=== PATIENT | female | born 1985 | race Caucasian/White ===

== ENCOUNTER 2021-08-31 05:50 | Inpatient (IN) | payer BC ==
[2021-08-31] MEDS ORDERED: ELECTROLYTE-148 SOLN 1,000 ML IV ONE (06:35)
[2021-08-31 06:46] VITALS: BMI 33.6
[2021-08-31 07:33] LABS: BASO % 0.2 % (0-2.0); EOS % 0.9 % (0-4.5); HEMATOCRIT 39.8 % (32.4-45.2); HEMOGLOBIN 13.3 GM/dL (10.7-15.3); LYMPH % 30.4 % (8-40); MCH 31.8 pg (25.7-33.7); MCHC 33.4 g/dl (32.0-36.0); MEAN PLT VOLUME 10.8 fl (7.5-11.1); MONO % 4.6 % (3.8-10.2); NEUT % 63.9 % (42.8-82.8); PLATELET COUNT 218 10^3/uL (134-434); RBC 4.19 M/mm3 (3.60-5.2); RDW 12.8 % (11.6-15.6); WHITE BLOOD COUNT 10.8 K/mm3 (4.0-10.0)
[2021-08-31] MEDS ORDERED: FENTANYL/BUPIVACAINE/NS/PF - PCEA - 50 ML DISP.SYRIN EP ONE (07:43)
[2021-08-31] MEDS ORDERED: OXYTOCIN 20 UNITS in 0.9% NS 20 UNIT/1,000 ML INFUS.BAG IV ONE (07:44)
[2021-08-31] MEDS ORDERED: LIDOCAINE HCL 1% PRESERVATIVE FREE - 30ML VIAL ONE (07:44)
[2021-08-31 07:46] LABS: INR 0.83 (0.83-1.09); PROTHROMBIN TIME (PATIENT) 9.5 SEC (9.7-13.0)
[2021-08-31 07:49] LABS: ACTIVATED PTT 24.6 SECONDS (25.2-36.5)
[2021-08-31 07:56] LABS: CALCIUM 8.6 mg/dL (8.5-10.1)
[2021-08-31 07:57] LABS: BLOOD UREA NITROGEN 15.5 mg/dL (7-18)
[2021-08-31 08:00] LABS: CREATININE 0.8 mg/dL (0.55-1.3)
[2021-08-31] MEDS ORDERED: BUPIVACAINE HCL/PF 0.25% (2.5MG/ML) 10 ML VIAL ONE (08:04)
[2021-08-31] MEDS ORDERED: NALOXONE HCL 0.4 MG/ML VIAL IVPUSH PRN (08:25)
[2021-08-31] MEDS ORDERED: FENTANYL/BUPIVACAINE/NS/PF - PCEA - 50 ML DISP.SYRIN EP SCH (08:30)
[2021-08-31] MEDS ORDERED: WITCH HAZEL 50% (TUCKS) 40 PAD/JAR PAD TP PRN (08:50)
[2021-08-31] MEDS ORDERED: oxyCODONE HCL 5 MG TABLET PO PRN (08:50)
[2021-08-31] MEDS ORDERED: BENZOCAINE 28 GM HEMORRHOIDAL OINTMENT TP PRN (08:50)
[2021-08-31] MEDS ORDERED: METHYLERGONOVINE MALEATE 0.2 MG/1 ML AMP IM PRN (08:50)
[2021-08-31] MEDS ORDERED: BENZOCAINE 20% 57 GM BOTTLE TP PRN (08:50)
[2021-08-31] MEDS ORDERED: ACETAMINOPHEN 325 MG TABLET (FP) PO PRN (08:50)
[2021-08-31] MEDS ORDERED: BISACODYL 10 MG SUPP.RECT RC PRN (08:50)
[2021-08-31] MEDS ORDERED: ELECTROLYTE-148 SOLN 1,000 ML IV SCH (09:00)
[2021-08-31] MEDS ORDERED: OXYTOCIN 20 UNITS in 0.9% NS 20 UNIT/1,000 ML INFUS.BAG IV SCH (09:00)
[2021-08-31] MEDS ORDERED: OXYTOCIN 30 UNITS in 0.9% NS 30 UNIT/500 ML INFUS.BAG IVPB ONE (09:37)
[2021-08-31] MEDS ORDERED: OXYTOCIN 30 UNITS in 0.9% NS 30 UNIT/500 ML INFUS.BAG IVPB SCH (09:45)
[2021-08-31 11:36] LABS: HIV INTERPRETATION NEGATIVE (NEGATIVE)
[2021-08-31] MEDS: PRENATAL VITAMINS W/ FOLIC ACID TABLET (FP) PO SCH (12:51)
[2021-08-31] MEDS: IBUPROFEN 600 MG TABLET (FP) PO PRN (22:54)
[2021-09-01 08:30] LABS: BASO % 0.1 % (0-2.0); EOS % 0.4 % (0-4.5); HEMATOCRIT 30.3 % (32.4-45.2); HEMOGLOBIN 10.1 GM/dL (10.7-15.3); LYMPH % 19.5 % (8-40); MCH 31.6 pg (25.7-33.7); MCHC 33.4 g/dl (32.0-36.0); MEAN CELL VOLUME 94.8 fl (80-96); MEAN PLT VOLUME 9.2 fl (7.5-11.1); MONO % 5.9 % (3.8-10.2); NEUT % 74.1 % (42.8-82.8); PLATELET COUNT 157 10^3/uL (134-434); RDW 13.1 % (11.6-15.6); WHITE BLOOD COUNT 15.6 K/mm3 (4.0-10.0)
[2021-09-01] MEDS: PRENATAL VITAMINS W/ FOLIC ACID TABLET (FP) PO SCH (09:20)
[2021-09-01] MEDS: IBUPROFEN 600 MG TABLET (FP) PO PRN ×3 (10:59→22:33)
[2021-09-01 21:28] VITALS: PULSE 85; TEMP 98.6
[2021-09-01] MEDS ORDERED: SENNOSIDES/DOCUSATE COMBO (SENNA PLUS) TABLET (UD) PO PRN (22:00)
[2021-09-02] MEDS: IBUPROFEN 600 MG TABLET (FP) PO PRN (07:42)
[2021-09-02 08:46] VITALS: BP 133/78
[2021-09-02] MEDS: PRENATAL VITAMINS W/ FOLIC ACID TABLET (FP) PO SCH (10:28)
== END 2021-09-02 12:05 | disposition home or self-care (01) | DRG 805 ==
LOC: JDEL 05:50 → JLDR 06:20 → J3W 13:50
PROVIDERS: ADMIT Obstetrics & Gynecology; ATTEND Obstetrics & Gynecology
PROC: 10E0XZZ Delivery of Products of Conception, External Approach (ICD-10-PCS; principal; 2021-08-31)
PROC: 0W8NXZZ Division of Female Perineum, External Approach (ICD-10-PCS; 2021-08-31)
DX: O98.52 Other viral diseases complicating childbirth (principal); U07.1 COVID-19; Z37.0 Single live birth; Z3A.40 40 weeks gestation of pregnancy
CPT/HCPCS: 36415; 59409; 80048; 85025; 85610; 85730; 86780; 86850; 86900; 86901; 87389; C9803; U0003; U0005

== ENCOUNTER 2025-03-13 19:55 | Inpatient (IN) | payer BC, OTHER ==
[2025-03-13] MEDS: ELECTROLYTE-148 SOLN 1,000 ML IV SCH (20:45)
[2025-03-13 20:57] VITALS: BMI 31.7
[2025-03-13 21:07] LABS: ABSOLUTE IMMATURE GRANULOCYTES 0.12 x10^3/uL (0.0-0.031); BASOPHILS # 0.04 x10^3/uL (0.01-0.08); EOSINOPHIL % 0.8 % (0.7-5.8); EOSINOPHILS # 0.11 x10^3/uL (0.04-0.36); MCHC 33.2 g/dl (32.2-35.5); MEAN CELL VOLUME 87.7 fl (79.4-94.8); MEAN PLT VOLUME 11.3 fl (9.4-12.3); MONOCYTE # 0.90 x10^3/uL (0.24-0.86); MONOCYTE % 6.7 % (4.7-12.5); RDW 12.5 % (12.1-16.8)
[2025-03-13 21:15] LABS: INR 0.89 (0.83-1.09); PROTHROMBIN TIME (PATIENT) 9.7 SEC (9.7-13.0)
[2025-03-13 21:18] LABS: ACTIVATED PTT 21.5 SECONDS (25.2-36.5)
[2025-03-13 21:22] LABS: GLUCOSE,RANDOM 106.0 mg/dL (74-106)
[2025-03-13 21:23] LABS: CO2 22.0 mmol/L (21-32)
[2025-03-13 21:28] LABS: CREATININE 0.69 mg/dL (0.55-1.3)
[2025-03-13] MEDS ORDERED: FENTANYL/BUPIVACAINE/NS/PF - PCEA - 50 ML DISP.SYRIN EP ONE (21:46)
[2025-03-13 21:48] LABS: HIV INTERPRETATION NEGATIVE (NEGATIVE)
[2025-03-13] MEDS ORDERED: OXYTOCIN 20 UNITS in 0.9% NS 20 UNIT/1,000 ML INFUS.BAG IV ONE (21:53)
[2025-03-13] MEDS: OXYTOCIN 20 UNITS in 0.9% NS 20 UNIT/1,000 ML INFUS.BAG IV SCH (22:10)
[2025-03-13] MEDS ORDERED: LIDOCAINE HCL 1% PRESERVATIVE FREE - 30ML VIAL ONE (22:11)
[2025-03-13] MEDS ORDERED: BISACODYL 10 MG SUPP.RECT RC PRN (22:37)
[2025-03-13] MEDS ORDERED: METHYLERGONOVINE MALEATE 0.2 MG/1 ML AMP IM PRN (22:37)
[2025-03-13] MEDS ORDERED: IBUPROFEN 600 MG TABLET (FP) PO ONE (23:34)
[2025-03-13] MEDS: IBUPROFEN 600 MG TABLET (FP) PO PRN (23:34)
[2025-03-14 00:18] VITALS: RESP 18
[2025-03-14] MEDS: ACETAMINOPHEN 325 MG TABLET (FP) PO PRN (00:35)
[2025-03-14] MEDS ORDERED: ACETAMINOPHEN 325 MG TABLET (FP) ONE (00:37)
[2025-03-14 06:56] LABS: MCHC 32.1 g/dl (32.2-35.5); MEAN CELL VOLUME 88.9 fl (79.4-94.8); MEAN PLT VOLUME 11.2 fl (9.4-12.3); RDW 12.5 % (12.1-16.8)
[2025-03-14] MEDS: FERROUS SO4 325 MG TABLET (FP) PO SCH (08:19)
[2025-03-14] MEDS: PRENATAL VITAMINS W/ FOLIC ACID TABLET (FP) PO SCH (09:02)
[2025-03-14] MEDS: BENZOCAINE 28 GM HEMORRHOIDAL OINTMENT TP PRN (12:14)
[2025-03-14] MEDS: WITCH HAZEL 50% (TUCKS) 40 PAD/JAR PAD TP PRN (12:15)
[2025-03-14] MEDS: BENZOCAINE 20% 57 GM BOTTLE TP PRN (12:15)
[2025-03-15] MEDS: SENNOSIDES/DOCUSATE COMBO (SENNA PLUS) TABLET (UD) PO PRN (04:09)
[2025-03-15 11:11] VITALS: BP 113/87; PULSE 85; TEMP 97.9
== END 2025-03-15 12:55 | disposition home or self-care (01) | DRG 807 ==
LOC: JDEL 19:55 → JLDR 20:20 → J3W 03-14 00:50
PROVIDERS: ADMIT Obstetrics & Gynecology; ATTEND Obstetrics & Gynecology
PROC: 10E0XZZ Delivery of Products of Conception, External Approach (ICD-10-PCS; principal; 2025-03-13)
PROC: 0HQ9XZZ Repair Perineum Skin, External Approach (ICD-10-PCS; 2025-03-13)
PROC: 0W8NXZZ Division of Female Perineum, External Approach (ICD-10-PCS; 2025-03-13)
DX: O70.0 First degree perineal laceration during delivery (principal); Z3A.40 40 weeks gestation of pregnancy; Z37.0 Single live birth
CPT/HCPCS: 36415; 59409; 80048; 85025; 85610; 85730; 86780; 86850; 86900; 86901; 87389